=== PATIENT | male | born 1950 | race Caucasian/White ===

== ENCOUNTER → 2019-07-15 | Outpatient (CLI) | payer OTHER | END | disposition home or self-care (01) | LOC: PCVCCLINIC 09:00 | PROVIDERS: ATTEND Internal Medicine Cardiovascular Disease | DX: E78.5 Hyperlipidemia, unspecified (principal); I11.9 Hypertensive heart disease without heart failure; Z87.891 Personal history of nicotine dependence; Z79.82 Long term (current) use of aspirin; Z79.899 Other long term (current) drug therapy | CPT/HCPCS: 36415; 80061; 93005; G0463 ==

== ENCOUNTER → 2019-08-22 | Outpatient (CLI) | payer OTHER ==
--- NOTE | 2019-08-22 13:57 | PCVCIMAG ---
APPROVED REPORT Study performed: 08/22/2019 11:38:45 Exam: Stress Echocardiogram Indication: Chest pain , Dyspnea, fatigue Patient Location: Echo lab Stress Nurse: Ashley Juarez RN Room #: 2 Status: routine Ht: 5 ft 10 in HR: 85 bpm BP: 146/94 mmHg Rhythm: NSR Medical History Medical History: Dyslipidemia,, HTN Cardiac Risk Factors: HTN, Hyperlipidemia, Tobacco History (Current/Recent) Previous Cardiac Procedures: none Pretest Chest Pain Characteristics: No chest pain Exercise History: Sedentary Procedure The patient underwent an Exercise Stress Test using the Vinny Protocol. Blood pressure, heart rate, and EKG were monitored. An Echocardiogram was performed by video surveillance technician in four stages in quad fashion. At peak stress, four selected images were obtained and placed side by side with resting images for comparison. Stress Test Details Stress Test: Exercise stress testing was performed using a Vinny protocol. HR Resting HR: 85 bpmMax Heart Rate (APMHR): 153 bpm Max HR Achieved: 139 bpmTarget HR (85% APMHR): 130 bpm % of APMHR: 90 Recovery HR: 86 bpm HR response to stress: Normal HR response to stress BP Resting BP: 146/94 mmHg Max BP: 170/80 mmHg Recovery BP: 140/82 mmHg BP response to stress: Normal blood pressure response to stress. ECG Resting ECG: Sinus Rhythm Stress ECG: Sinus Rhythm ST Change: Nondiagnostic ST abnormality Maximum ST Deviation: 1.2 mm Arrhythmia: Occ PVCs Recovery ECG: Sinus Rhythm, nonspecific ST-T abnormalities Recovery ST Change: Eqivocally ischemic Recovery ST Deviation: -0.50 mm Recovery Arrhythmia: Short runs VT Clinical Reason for Termination: Maximal effort Stress Symptoms: chest pressure,fatigue,dyspnea Exercise duration: 6 min 00 sec Highest Stage Achieved: Stage 2: 2.5 mph at 12% grade. Exercise capacity: 6.8 METs Overall Exercise Capacity for Age: Poor Angina Score: Non-Limiting No complications. Stress ECG Conclusion Katz Treadmill Score is -4.0 which is Moderate risk. Pre-Stress Echo The resting Echocardiogram showed low normal left ventricular contractility with an estimated Ejection Fraction of about 50-55%. The resting Echocardiogram demonstrated wall motion abnormality in the mild hypokinesis of the distal inferior and septal estevez . Post-Stress Echo The stress Echocardiogram showed abnormal left ventricular contractility with an estimated Ejection Fraction of about 55%. The stress Echocardiogram demonstrated wall motion abnormality in the inferior wall,apex and bowing of the distal septal wall, . Clinical The patient had mild chest pressure at peak exercise which resolved in recovery Conclusion Clinical Response: Equivocal Exercise Capacity: Below Average Stress ECG Response: Indeterminant Stress Echo Images: Ischemic Abnormal stress echo. Cardiac catheterization is rwecommended. Mild tricuspid regurgitation with a normal pulmonary pressure s seen. No prior study available for comparison. <Conclusion> Abnormal stress echo. Cardiac catheterization is rwecommended. Mild tricuspid regurgitation with a normal pulmonary pressure s seen.
--- NOTE | 2019-08-22 18:25 | PCVCIMAG ---
EXAM: AORTOILIAC DUPLEX INDICATION: Palpable abdominal fullness. FINDINGS: AORTA: Suprarenal aorta measures maximum diameter of 2.7 cm. There is not a fusiform infrarenal aortic aneurysm. The infrarenal aorta measures maximum diameter of 2.3 cm. No aortic stenosis. RIGHT COMMON ILIAC ARTERY: Maximum diameter is 0.9 cm. No significant stenosis. RIGHT EXTERNAL ILIAC ARTERY: No significant stenosis. LEFT COMMON ILIAC ARTERY: Maximum diameter is 1.1 cm. No significant stenosis. LEFT EXTERNAL ILIAC ARTERY: No significant stenosis. IMPRESSION: No abdominal aortic aneurysm. No aortoiliac stenosis seen. LOC:[id number]
== END | disposition home or self-care (01) ==
LOC: PCVCIMAG 11:39
PROVIDERS: ATTEND Internal Medicine Cardiovascular Disease
DX: I10 Essential (primary) hypertension (principal); E78.5 Hyperlipidemia, unspecified; I77.3 Arterial fibromuscular dysplasia; I36.1 Nonrheumatic tricuspid (valve) insufficiency; R94.39 Abnormal result of other cardiovascular function study; Z87.891 Personal history of nicotine dependence
CPT/HCPCS: 93325; 93351; 93978